=== PATIENT | female | born 2000 | race Caucasian/White ===

== ENCOUNTER 2022-04-30 10:25 | Outpatient (CLI) | payer OTHER, SELFPAY ==
[2022-04-30 11:35] LABS: Cholesterol* 185 mg/dL (90-199)
[2022-04-30 11:36] LABS: Glucose* 95 mg/dL (60-115); HDL Cholesterol* 41 mg/dL (>=50); LDL Cholesterol Calculated 112 mg/dL (<100); Triglycerides* 162 mg/dL (40-149)
[2022-05-01 21:12] LABS: Follicle Stimulating Hormone 6.8 IU/L
[2022-05-02 11:19] LABS: Insulin, Fasting 25 uIU/mL (3-25); Prolactin 5.7 ng/mL (2.8-29.2)
[2022-05-04 16:41] LABS: 17-Hydroxyprogesterone HPLC 25.03 ng/dL (<=206.00)
[2022-05-05 14:58] LABS: Sex Hormone Binding Globulin 10 nmol/L (25-122); Testosterone Bioavailable 15.9 ng/dL (2.2-20.6); Testosterone, Free LC-MS/MS 5.2 pg/mL (0.8-7.4); Testosterone, LC-MS/MS 21 ng/dL (9-55)
== END 2022-04-30 10:26 | disposition home or self-care (01) ==
PROVIDERS: PCP Physician Assistant Medical; Visit Provider Physician Assistant
DX: Z01.419 Encounter for gynecological examination (general) (routine) without abnormal findings (principal); N91.2 Amenorrhea, unspecified; Z13.6 Encounter for screening for cardiovascular disorders; Z13.1 Encounter for screening for diabetes mellitus; Z11.3 Encounter for screening for infections with a predominantly sexual mode of transmission
CPT/HCPCS: 80061; 82947; 83001; 83498; 83525; 84146; 84270; 84402; 84403; 84443

== ENCOUNTER 2022-05-03 07:06 | Outpatient (CLI) | payer OTHER, SELFPAY ==
--- NOTE | 2022-05-03 07:15 | CRLHL7_ITS ---
For Patients: As a result of the Century Cures Act, medical imaging exams and procedure reports are released immediately into your electronic medical record. You may view this report before your referring provider. If you have questions, please contact your health care provider. INDICATION: OLIGOMENORRHEA COMPARISON: none TECHNIQUE: 2D chowdary scale and color Doppler images were acquired of the pelvis using a transabdominal and transvaginal approach. FINDINGS: Sonographic images demonstrate a normal size and smooth outer contour of the uterus. Uterus measures 6.0 cm in length by 3.4 cm in AP diameter by 4.1 cm in transverse dimension. The myometrium has a normal uniform echotexture. The endometrial lining appears normal and measures 6 mm in composite thickness. The right ovary measures 3.5 x 2.3 x 2.5 cm in size and the left ovary measures 3.5 x 1.9 x 2.5 cm. Right ovarian volume 10.5 cc. Left ovarian volume 8.6 cc the ovaries demonstrate normal arterial and venous blood flow on color Doppler analysis. There are no suspicious fluid collections within the cul-de-sac. IMPRESSION: Normal pelvic ultrasound. Dictated by Danny Álvarez MD @ 05/03/2022 10:54:28 AM (Electronically Signed)
== END 2022-05-03 07:07 | disposition home or self-care (01) ==
PROVIDERS: PCP Physician Assistant Medical; Visit Provider Physician Assistant
DX: N91.5 Oligomenorrhea, unspecified (principal)
CPT/HCPCS: 76830; 76856

== ENCOUNTER 2022-07-09 10:40 | Outpatient (CLI) | payer OTHER, SELFPAY | END 2022-07-09 10:41 | disposition home or self-care (01) | LOC: FRMREF 10:41 | PROVIDERS: PCP Physician Assistant Medical; Visit Provider Physician Assistant Medical | DX: R06.83 Snoring (principal); E66.01 Morbid (severe) obesity due to excess calories; D64.9 Anemia, unspecified | CPT/HCPCS: 82728 ==

== ENCOUNTER 2022-09-27 20:47 | Outpatient (CLI) | payer OTHER, SELFPAY ==
--- NOTE | 2022-10-05 12:43 | W.PM.SLEEP ---
Sleep Study Details Details Interpreting Provider: Adolfo Date of Sleep Study: 09/27/22 Sleep Study Details: STUDY TYPE:? Hospital-based without CPAP ? BMI:? 41.3 ORDERING PROVIDER:Familia Thompson INDICATION:? Concerns about sleep apnea ? SLEEP SUMMARY:? Total sleep time 367.5 minutes, arousal index 51.9 RESPIRATORY SUMMARY:? Mean oxygen awake 96 asleep 95 minimum 86 0.6 minutes oxygen between 80 and 88% AHI is 20.1, RDI 40.8 Supine REM AHI 89 PERIODIC LIMB MOVEMENTS OF SLEEP:? Index 2, index with arousal 0.5 CARDIAC:? Awake 86, asleep 76. No arrhythmias noted IMPRESSION:? Severe obstructive sleep apnea with an RDI of 40.8, AHI of 20.1. There was both mild supine position dependency and significant REM dependency RECOMMENDATION: A CPAP AutoSet range 4 to 17. Close follow-up recommended. Weight loss is also recommended.
== END 2022-09-27 20:48 | disposition home or self-care (01) ==
LOC: SLEEP 20:48
PROVIDERS: PCP Physician Assistant Medical; Visit Provider Physician Assistant Medical
DX: G47.33 Obstructive sleep apnea (adult) (pediatric) (principal)
CPT/HCPCS: 95810

== ENCOUNTER 2023-03-07 08:24 | Outpatient (CLI) | payer OTHER, SELFPAY | END 2023-03-07 08:25 | disposition home or self-care (01) | LOC: NFLDREF 03-08 16:20 | PROVIDERS: PCP Physician Assistant Medical; Referring Provider Physician Assistant Medical; Visit Provider Physician Assistant | DX: E28.2 Polycystic ovarian syndrome (principal); N91.5 Oligomenorrhea, unspecified; E66.01 Morbid (severe) obesity due to excess calories; Z68.41 Body mass index [BMI] 40.0-44.9, adult; D64.9 Anemia, unspecified | CPT/HCPCS: 80061; 83525; 84443 ==

== ENCOUNTER 2024-08-07 07:23 | Outpatient (CLI) | payer OTHER, SELFPAY | END 2024-08-07 07:24 | disposition home or self-care (01) | LOC: FRMREF 07:49 | PROVIDERS: PCP Physician Assistant Medical; Visit Provider Physician Assistant Medical | DX: Z00.01 Encounter for general adult medical examination with abnormal findings (principal); E28.2 Polycystic ovarian syndrome; E66.01 Morbid (severe) obesity due to excess calories; Z68.41 Body mass index [BMI] 40.0-44.9, adult; Z12.4 Encounter for screening for malignant neoplasm of cervix | CPT/HCPCS: 80053; 80061; 84443; 87624; 87625; 88141; 88142 ==